=== PATIENT | female | born 1985 | race Caucasian/White ===

== ENCOUNTER 2019-10-13 13:37 | Outpatient (CLI) | payer BC ==
[2019-10-13 15:36] VITALS: BP 104/64; PULSE 92; RESP 16; TEMP 98
--- NOTE | 2019-11-29 10:37 | P.MSEPDOC ---
Presenting Problems - Arrival Data Date of Arrival on Unit: 10/13/19 Time of Arrival on Unit: 13:37 Mode of Transport: Ambulatory - Complaint OB-Reason for Admission/Chief Complaint: Decreased Movement Comment: pt presents to triage with complaints of no real baby movement felt since lateWednesday night despite drinking caffeine and cold fluids Medical History - Information : 2 Para: 1 Term: 1 : 0 Abortions: Spontaneous or Elective: 0 Number of Living Children: 1 - Gestational Age Gestational Age by LORENE (wks/days): 38 Weeks and 2 Days Review of Systems - Review of Systems Constitutional: No problems Breast: No problems ENT: No problems Cardiovascular: No problems Respiratory: No problems Gastrointestinal: No problems Genitourinary: No problems Musculoskeletal: No problems Neurological: No problems Skin: No problems Vital Signs - Temperature Temperature: 98.0 F Temperature Source: Oral - Pulse Right Pulse Rate: 92 Pulse Assessment Method: Automatic Cuff - Respirations Respiratory Rate: 16 Oxygen Delivery Method: Room Air O2 Sat by Pulse Oximetry: 98 - Blood Pressure Right Arm Blood Pressure: 104/64 Blood Pressure Mean: 77 Blood Pressure Source: Automatic Cuff Medical Screen Scoring (Pre) - Cervical Exam Dilation: Exam Deferred Effacement: Exam Deferred - Uterine Contractions Frequency: N/A Duration: N/A Intensity: N/A - Maternal Vital Signs Maternal Temperature: N/A Signs of Preeclampsia: N/A Maternal Respirations: N/A - Maternal Trauma Maternal Trauma: N/A - Assessment - Baby A Baseline FHR: 135 Heart Rate - NICHD Category: Category I (Normal) = 0 NST: Reactive Position: N/A Station: N/A - Total Score - Baby A Total Score - Baby A: 0 - Total Score - Baby B Total Score - Baby B: 0 - Total Score - Baby C Total Score - Baby C: 0 - Level of Risk - Baby A Level of Risk - Baby A: Low (0-5) - Level of Risk - Baby B Level of Risk - Baby B: Low (0-5) - Level of Risk - Baby C Level of Risk - Baby C: Low (0-5) Physician Notification (Pre) - Physician Notified Physician Notified Date: 10/13/19 Physician Notified Time: 14:10 New Order Received: Yes - Notification Comment Comment: Dr Tremp in department viewed efm. notified pts reason for visit is not feeling baby movement since late wednesday night. vss. nst reactive babynow very active and pt also feeling the movement. order for discharge received Disposition - Disposition OB Disposition: Discharge to home Discharge Date: 10/13/19 Discharge Time: 14:15 I agree with the RN Medical Screening Exam: Yes Risk & Benefit of care provided described in d/c instruction: Yes Diagnosis: DECREASED MOVEMENTS, THIRD TRIMESTER, FETUS 1
== END 2019-10-13 14:15 | disposition home or self-care (01) ==
LOC: FBPOP 13:37
PROVIDERS: ATTEND Obstetrics & Gynecology
DX: O36.8131 Decreased fetal movements, third trimester, fetus 1 (principal); Z3A.38 38 weeks gestation of pregnancy
CPT/HCPCS: 59025; 99213

== ENCOUNTER 2019-10-19 00:18 | Inpatient (IN) | payer BC ==
[2019-10-19] MEDS ORDERED: LIDOCAINE 0.5% (PF) 5 MG/ML (50 ML SDV) SQ PRN (01:32)
[2019-10-19] MEDS ORDERED: METHYLERGONOVINE 0.2 MG/ML 1 ML AMP IM PRN (01:32)
[2019-10-19] MEDS ORDERED: TERBUTALINE 1 MG/ML VIAL SQ PRN (01:32)
[2019-10-19] MEDS ORDERED: PENICILLIN G POTASSIUM 5,000,000 UNIT in DEXTROSE 5% IN WATER 100 ML IVPB STA ×2 (01:32)
[2019-10-19] MEDS ORDERED: CARBOPROST TROMETHAMINE 250 MCG/ML 1 ML AMP IM PRN (01:32)
[2019-10-19] MEDS ORDERED: OXYTOCIN 10 UNIT/ML 1 ML VIAL IM PRN (01:32)
[2019-10-19] MEDS: LACTATED RINGERS 1,000 ML IV SCH ×2 (01:50→19:34)
[2019-10-19 02:03] LABS: Basophils # (A) 0.2 k/uL (0-0.2); Basophils % (A) 2 %; Eosinophils # (A) 0.1 k/uL (0-0.7); Eosinophils % (A) 1 %; HCT 36.8 % (34.0-46.0); HGB 12.6 gm/dL (11.4-16.0); Lymphocytes # (A) 2.7 k/uL (1.0-4.8); Lymphocytes % (A) 23 %; MCH 31.8 pg (25.0-35.0); MCHC 34.2 g/dL (31.0-37.0); MCV 92.8 fL (80.0-100.0); Mean Platelet Volume 10.5; Monocytes # (A) 0.8 k/uL (0-1.0); Monocytes % (A) 7 %; Neutrophils # (A) 7.6 k/uL (1.3-7.7); Neutrophils % (A) 65 %; Platelet Count 215 k/uL (150-450); RBC 3.97 m/uL (3.80-5.40); RDW 14.2 % (11.5-15.5); WBC 11.7 k/uL (3.8-10.6)
[2019-10-19] MEDS ORDERED: BENZOCAINE/MENTHOL SPRAY 1 GM/SPRAY AEROSOL TOPICAL PRN (03:29)
[2019-10-19] MEDS ORDERED: LANOLIN CREAM 5 GM TUBE TOPICAL PRN (03:29)
[2019-10-19] MEDS ORDERED: diphenhydrAMINE 50 MG CAP PO PRN (03:29)
[2019-10-19] MEDS ORDERED: diphenhydrAMINE 50 MG/ML 1 ML VIAL IVP PRN ×2 (03:29)
[2019-10-19] MEDS ORDERED: SIMETHICONE 80 MG CHEWABLE PO PRN (03:29)
[2019-10-19] MEDS ORDERED: ZOLPIDEM 5 MG TAB PO PRN (03:29)
[2019-10-19] MEDS ORDERED: IBUPROFEN 600 MG TAB PO PRN (03:29)
[2019-10-19] MEDS ORDERED: ACETAMINOPHEN TAB 325 MG TAB PO PRN (03:29)
[2019-10-19] MEDS ORDERED: HYDROCORTISONE 2.5% RECTAL CREAM 30 GM TUBE RECTAL PRN (03:29)
[2019-10-19] MEDS ORDERED: diphenhydrAMINE 25 MG CAP PO PRN (03:29)
[2019-10-19] MEDS ORDERED: HYDROcodone/APAP 7.5-325MG 1 EACH TAB PO PRN (03:29)
[2019-10-19] MEDS ORDERED: WITCH HAZEL 1 EACH MED..PAD TOPICAL PRN (03:29)
[2019-10-19] MEDS ORDERED: HYDROcodone/APAP 5-325MG 1 EACH TAB PO PRN (03:29)
[2019-10-19] MEDS ORDERED: OXYTOCIN 20 UNITS/1000 ML NS 1,000 ML IV SCH (03:30)
--- NOTE | 2019-10-19 03:36 | P.HPOB ---
History of Present Illness H&P Date: 10/19/19 Chief Complaint: 39 and one sevenths weeks, active labor The patient is a 34-year-old 2 para 1001 admitted at 39 and one sevenths weeks as established by last menstrual period and confirmed by 8 week ultrasound. She is admitted in active labor with all signs reassuring. Her has been uncomplicated and group B strep status is positive. She is additionally noted to be Rh- and received RhoGAM at approximately 28 weeks. Review of Systems Review of systems is confined to history of present illness. Past Medical History Past Medical History: Asthma Additional Past Medical History / Comment(s): back/neck issues History of Any Multi-Drug Resistant Organisms: None Reported Additional Past Surgical History / Comment(s): wisdom teeth removal Past Anesthesia/Blood Transfusion Reactions: No Reported Reaction Past Psychological History: No Psychological Hx Reported Smoking Status: Never smoker Past Alcohol Use History: None Reported Past Drug Use History: None Reported - Past Family History Mother Family Medical History: Thyroid Disorder Medications and Allergies Home Medications Medication Instructions Recorded Confirmed Type Pnv No.95/Ferrous Fum/Folic AC 1 each PO DAILY 10/13/19 10/13/19 History [ Multivitamin Tablet] Allergies Allergy/AdvReac Type Severity Reaction Status Date / Time Sulfa (Sulfonamide Allergy Severe Anaphylaxis Verified 10/19/19 00:31 Antibiotics) Exam Vital Signs Temp Pulse Resp BP Pulse Ox 10/19/19 00:36 97.3 F L 87 16 121/68 99 10/19/19 00:32 97.3 F L 87 16 121/68 99 Intake and Output 10/18/19 10/18/19 10/19/19 14:59 22:59 06:59 Other: Weight 73.028 kg In general, this is a well-developed, well-nourished white female in discomfort as she is in active labor and nearing delivery. Her heart has a regular rhythm and rate without murmur. Her lungs are clear to auscultation bilaterally in all hendrickson. Her abdomen is gravid, nondistended, has normal active bowel sounds, soft, nontender, without any palpable masses aside from uterine fundus. Her extremities are without any cyanosis, clubbing, or edema and are nontender to palpation bilaterally. Digital cervical examination demonstrates the cervix to be dilated to approximately 9 cm with 100% effacement and the vertex at 0 station. Amniotic membranes are intact but ruptured spontaneously shortly after the digital check. Results Result Diagrams: 10/19/19 01:43 Abnormal Lab Results - Last 24 Hours (Table) 10/19/19 Range/Units 01:43 WBC 11.7 H (3.8-10.6) k/uL Assessment and Plan (1) Active labor at term Current Visit: Yes Status: Acute Code(s): NTV2580 - SNOMED Code(s): 60897837 (2) Mother positive for group B Streptococcus colonization Current Visit: Yes Status: Acute Code(s): P00.2 - AFFECTED BY MATERNAL INFEC/PARASTC DISEASES SNOMED Code(s): 40890305710913 (3) Rh negative status during Current Visit: Yes Status: Acute Code(s): O26.899 - OTH RELATED CONDITIONS, UNSPECIFIED TRIMESTER; Z67.91 - UNSPECIFIED BLOOD TYPE, RH NEGATIVE SNOMED Code(s): 349194312 (4) Normal spontaneous vaginal delivery Current Visit: Yes Status: Acute Code(s): O80 - ENCOUNTER FOR FULL-TERM UNCOMPLICATED DELIVERY SNOMED Code(s): 67014434 Plan: The patient is admitted for active management of labor. She is a good candidate for IV or epidural analgesia though she is choosing neither. She will have close maternal and surveillance and expectant management will be pract iced. Antibiotic prophylaxis was initiated for group B strep carrier status concerns.
--- NOTE | 2019-10-19 03:38 | P.PROBDLV ---
Vaginal Delivery Note - . Vaginal Delivery Note: The patient is a 34-year-old 2 para 1001 admitted at 39 and one sevenths weeks by good dating parameters. She is admitted in active labor with all signs reassuring. Her has been uncomplicated though she is Rh- and received RhoGAM at 28 weeks. She additionally is known to be group B strep positive. As result, antibiotic prophylaxis was started upon admission. She progressed fairly quickly through the active phase of labor to complete and then pushed over the course of approximately 5-10 minutes to a normal spontaneous vaginal delivery of a viable 6 lbs. 12 oz. baby boy with Apgars of 9 at 1 minute and 9 at 5 minutes delivered in the direct occiput anterior position. The placenta was delivered spontaneously, intact, and grossly normal with a grossly normal, centrally inserted three-vessel cord. There were no lacerations of the perineum , vagina, or cervix. Estimated blood loss for the entire case was approximately 150 mL. There were no complications. All sponge, instrument, needle counts were correct. Both mother and are resting comfortably in recovery.
[2019-10-19] MEDS: SENNOSIDES-DOCUSATE SODIUM 1 EACH TAB PO SCH ×2 (08:00→19:35)
[2019-10-19] MEDS ORDERED: Rhogam IMMUNE GLOBULIN 1,500 UNIT/1 ML IM ONE (14:55)
[2019-10-19] MEDS: PENICILLIN G POTASSIUM 2,500,000 UNIT in DEXTROSE 5% IN WATER 100 ML IVPB SCH ×4 (19:33→19:34)
--- NOTE | 2019-10-20 10:41 | P.DS ---
Providers Date of admission: 10/19/19 01:30 Expected date of discharge: 10/21/19 Attending physician: Tim Strange Primary care physician: Stated None - Discharge Diagnosis(es) (1) Active labor at term Current Visit: Yes Status: Acute (2) Mother positive for group B Streptococcus colonization Current Visit: Yes Status: Acute (3) Rh negative status during Current Visit: Yes Status: Acute (4) Normal spontaneous vaginal delivery Current Visit: Yes Status: Acute Hospital Course: The patient is a 34-year-old 2 para 1001 admitted at 39 and one sevenths weeks as established by lamine Garcia. And confirmed by 8 week ultrasound. She is admitted in active labor with all signs reassuring. Her has been uncomplicated and group B strep status is positive. She is Rh- and received RhoGAM at 28 weeks. On labor and delivery, antibiotic prophylaxis was started for group B strep. She made fairly rapid progress through the active phase of labor to complete and then pushed over the course of approximately 4-5 contractions to a normal spontaneous vaginal delivery of a viable 6 lbs. 12 oz. baby boy with Apgars of 9 at 1 minute and 9 at 5 minutes. She did not receive 4 hours of prophylactic antibiotics prior to delivery. Her post course was entirely unremarkable vital signs remained stable and her temperature was afebrile throughout. She was deemed stable for discharge on day #2 was discharged home to follow-up in the office in 6 weeks' time routinely. Discharge instructions included calling for any significantly increased bleeding or foul-smelling lochia, significantly increased fever or abdominal pain, perineal complaints, breast complaints, or anything else that concerned her. She was additionally instructed to have nothing in vagina for at least 6 weeks time to include intercourse. She understood her instructions and agrees to follow up as noted above. Discharge medications included only continue vitamins as she has opted to breast-feed as well as [id number] analgesic pain medications. Maternal blood type is A- and rubella status is immune. Procedures: #1. Antibody prophylaxis #2. Normal spontaneous vaginal delivery Patient Condition at Discharge: Good Plan - Discharge Summary New Discharge Prescriptions: No Action Pnv No.95/Ferrous Fum/Folic AC [ Multivitamin Tablet] 1 each PO DAILY Discharge Medication List Pnv No.95/Ferrous Fum/Folic AC [ Multivitamin Tablet] 1 each PO DAILY 10/13/19 [History] Follow up Appointment(s)/Referral(s): Tim Strange MD [STAFF PHYSICIAN] - 6 Weeks Discharge Disposition: HOME SELF-CARE
--- NOTE | 2019-10-20 10:43 | P.PNOBGVD ---
Subjective - Subjective Patient reports: Reports appetite normal, Reports voiding normally, Reports pain well controlled, Reports ambulating normally : doing well, nursing well Objective - Latest Vital Signs Latest vital signs: Vital Signs Temp Pulse Resp BP BP Pulse Ox 10/20/19 08:00 97.4 F L 94 15 118/82 10/19/19 21:59 98 F 70 18 117/77 100 10/19/19 16:00 97.1 F L 80 14 110/66 10/19/19 11:15 98.2 F 86 114/67 - Exam Extremities: Present: normal Abdomen: Present: normal appearance, soft Uterus: Present: normal, firm (The uterine fundus is tonic and nontender just below the umbilicus.) Assessment and Plan (1) Active labor at term Current Visit: Yes Status: Acute Code(s): YHD9573 - SNOMED Code(s): 00005770 (2) Mother positive for group B Streptococcus colonization Current Visit: Yes Status: Acute Code(s): P00.2 - AFFECTED BY MATERNAL INFEC/PARASTC DISEASES SNOMED Code(s): 00196132172759 (3) Rh negative status during Current Visit: Yes Status: Acute Code(s): O26.899 - OTH RELATED CONDITIONS, UNSPECIFIED TRIMESTER; Z67.91 - UNSPECIFIED BLOOD TYPE, RH NEGATIVE SNOMED Code(s): 692892924 (4) Normal spontaneous vaginal delivery Current Visit: Yes Status: Acute Code(s): O80 - ENCOUNTER FOR FULL-TERM UNCOMPLICATED DELIVERY SNOMED Code(s): 17568041 Plan: Continue routine care. Patient remains in the hospital solely for further observation of the as adequate antibody prophylaxis for group B strep was not achieved prior to delivery. She will be discharged home tomorrow morning pending no complications.
[2019-10-20] MEDS: SENNOSIDES-DOCUSATE SODIUM 1 EACH TAB PO SCH ×2 (12:19→22:04)
[2019-10-21] MEDS: SENNOSIDES-DOCUSATE SODIUM 1 EACH TAB PO SCH (08:54)
[2019-10-21 08:58] VITALS: BP 115/71; PULSE 96; RESP 20; TEMP 98
== END 2019-10-21 15:30 | disposition home or self-care (01) | DRG 807 ==
LOC: FBPOP 00:18 → 4FBP 01:30
PROVIDERS: ADMIT Obstetrics & Gynecology; ATTEND Obstetrics & Gynecology
PROC: 10E0XZZ Delivery of Products of Conception, External Approach (ICD-10-PCS; principal; 2019-10-19)
PROC: 3E0234Z Introduction of Serum, Toxoid and Vaccine into Muscle, Percutaneous Approach (ICD-10-PCS; 2019-10-19)
DX: O26.893 Other specified pregnancy related conditions, third trimester (principal); Z37.0 Single live birth; O99.52 Diseases of the respiratory system complicating childbirth; J45.909 Unspecified asthma, uncomplicated; O99.824 Streptococcus B carrier state complicating childbirth; Z3A.39 39 weeks gestation of pregnancy; Z67.11 Type A blood, Rh negative; Z88.2 Allergy status to sulfonamides; Z83.49 Family history of other endocrine, nutritional and metabolic diseases
CPT/HCPCS: 59025; 85025; 85461; 86850; 86870; 86880; 86900; 86901; 86902; 99213

== ENCOUNTER → 2022-12-23 | Outpatient (CLI) | payer OTHER ==
[2022-12-24 04:19] LABS: Clam IgE <0.10 kU/L; Codfish IgE <0.10 kU/L; Egg White IgE <0.10 kU/L; Peanut IgE <0.10 kU/L; Scallop IgE <0.10 kU/L; Shrimp IgE 0.16 kU/L; Soybean IgE <0.10 kU/L; Walnut IgE (Food) <0.10 kU/L
[2022-12-24 13:22] LABS: Alt. alternata IgE Class CLASS 0; Alternaria alternata IgE <0.10 kU/L (<0.10); Asperg. fumagatus IgE <0.10 kU/L (<0.10); Asperg. fumagatus IgE Class CLASS 0; Bermuda Grass IgE 3.87 kU/L (<0.10); Birch(Com.Silvr) IgE 0.53 kU/L (<0.10); Birch(Com.Silvr) IgE Class CLASS 1; Cat Epith & Dander IgE <0.10 kU/L (<0.10); Cat Epith & Dander IgE Class CLASS 0; Clad herbarum IgE <0.10 kU/L (<0.10); Clad herbarum IgE Class CLASS 0; Cockroach IgE 5.77 kU/L (<0.10); Dermato. Pteronyssinus Class CLASS 2; Dermato. Pteronyssinus IgE 1.03 kU/L (<0.10); Dermato. farinae IgE 1.39 kU/L (<0.10); Dermato. farinae IgE Class CLASS 2; Elm IgE <0.10 kU/L (<0.10); Maple (Box Elder) IgE 0.22 kU/L (<0.10); Maple (Box Elder) IgE Class CLASS 0/1; Mountain Cedar IgE 0.11 kU/L (<0.10); Mountain Cedar IgE Class CLASS 0/1; Mouse Urine IgE Class CLASS 0; Mouse Urine Proteins,IgE <0.10 kU/L (<0.10); Nettle IgE 0.15 kU/L (<0.10); Nettle IgE Class CLASS 0/1; Oak IgE 0.51 kU/L (<0.10); Penicillium chrysogenum IgE <0.10 kU/L (<0.10); Penicillium chrysogenum IgE Cl CLASS 0; Rough Marshelder IgE 0.16 kU/L (<0.10); Rough Marshelder IgE Class CLASS 0/1; Timothy Grass IgE Class CLASS 3; White Ash IgE Class CLASS 0/1
== END | disposition home or self-care (01) ==
LOC: LABWHC1 15:25
PROVIDERS: ATTEND Family Medicine
DX: J45.20 Mild intermittent asthma, uncomplicated (principal); J30.9 Allergic rhinitis, unspecified
CPT/HCPCS: 36415; 82785; 86003

== ENCOUNTER → 2023-03-11 | Outpatient (CLI) | payer OTHER ==
[2023-03-12 14:38] LABS: Candida albicans IgE Class CLASS 0/1
== END | disposition home or self-care (01) ==
LOC: LABWHC1 15:57
PROVIDERS: ATTEND Family Medicine
DX: Z11.9 Encounter for screening for infectious and parasitic diseases, unspecified (principal); K59.00 Constipation, unspecified
CPT/HCPCS: 36415; 86003